=== PATIENT | male | born 2000 | race Caucasian/White ===

== ENCOUNTER → 2021-12-19 | Outpatient (CLI) | payer OTHER | LOC: COL.RAD 08:57 → EDSEX 10:00 | DX: K80.50 Calculus of bile duct without cholangitis or cholecystitis without obstruction (principal) | CPT/HCPCS: A9537; J2805 ==

== ENCOUNTER 2022-01-07 10:44 | Day surgery (SDC) | payer OTHER ==
[~2022-01-07] VITALS: Ht 175.3 cm; Wt 138.7 kg
[2022-01-07 11:43] VITALS: BP 121/68; PULSE 89; TEMP 98.3
[2022-01-07] MEDS ORDERED: ZOFRAN ODT4 MG PO (11:45)
[2022-01-07] MEDS ORDERED: DEPAKOTE ER 50500 MG PO (12:03)
[2022-01-07] MEDS ORDERED: CYMBALTA 30MG30 MG PO (12:03)
[2022-01-07] MEDS ORDERED: PRILOSEC 20MG20 MG PO (12:04)
[2022-01-07] MEDS ORDERED: INDERAL 10MG10 MG PO (12:04)
[2022-01-07] MEDS ORDERED: NORCO 325 MG-51 TAB PO (15:26)
[2022-01-07 16:13] VITALS: BP 148/79; PULSE 91; TEMP 97.4
--- NOTE | 2022-01-07 16:13 | NUR ---
The patient arrived back to [facility] from the recovery room at this time. The patient appears alert and oriented and reports gas pain at this time. The patient has four bandaids to his abdomen that appear clean, dry and intact. The patient has oxygen in place at 2L per nasal cannula and appears to be tolerating it well. Post operative vital signs were started at this time. The patient has some ice water and denies wanting anything further at this time. The patient's significant other, Catalino, was brought back to be at his bedside. Call light is within reach. Will continue to monitor the patient.
[2022-01-07 16:28] VITALS: BP 150/89; PULSE 86; TEMP 98.1
--- NOTE | 2022-01-07 16:28 | NUR ---
The patient was weaned to room air and appears to be tolerating it well. Vital signs appear stable. The patient appears to be tolerating the water well. Significant other remains at his bedside. Will continue to monitor the patient.
[2022-01-07 16:41] VITALS: BP 149/84; PULSE 75
--- NOTE | 2022-01-07 16:41 | NUR ---
The patient agrees to try some apple juice and vanilla pudding at this time. Vital signs remain stable. Will continue to monitor the patient.
[2022-01-07 17:00] VITALS: BP 144/68; PULSE 66
--- NOTE | 2022-01-07 17:00 | NUR ---
The patient was given a PRN dose of [place] 1 tab at this time to continue his pain control prior to him getting up to use the bathroom. The patient ate some pudding and drank some juice and appeared to tolerate both well.
--- NOTE | 2022-01-07 17:25 | NUR ---
The patient ambulated to the bathroom with the stand by assistance of one nurse and appeared to tolerate the activity well. While the patient attempted to void his right lower incision started to have a moderate amount of blood drainage. He notified the nurse and pressure was applied to the area. The nurse encouraged the patient to sit down as he was feeling light headed. He was given a cool wash cloth. Once it was determined that the incision was no longer draining a pressure dressing was applied to the site. The patient ambulated back to bed and wants to rest before getting up again.
--- NOTE | 2022-01-07 17:54 | NUR ---
Discharge instructions were reviewed with the patient and his significant other at this time. They both verbalized understanding and have no questions for the nurse at this time. The patient states he feels "much better" his pain is "minimal" and he feels the urge to void at this time. The patient's significant other is going to assist him to the bathroom and then the patient is going to get dressed for discharge.
--- NOTE | 2022-01-07 18:01 | NUR ---
Dr. Dutta was notified of the patient's drainage from his incision while in the bathroom. He verbalized understanding and has no further orders for the nurse at this time. He is good to proceed with discharge.
--- NOTE | 2022-01-07 18:05 | NUR ---
The patient was escorted out via wheelchair to a private vehicle by IVÁN Finch. The patient's belongings and discharge paperwork were sent with him. The patient's friend is present to pick him and his significant other up and drive them home.
== END 2022-01-07 18:05 | disposition home or self-care (01) ==
LOC: SDCO 10:44
DX: K81.1 Chronic cholecystitis (principal); K82.8 Other specified diseases of gallbladder; E66.01 Morbid (severe) obesity due to excess calories; Z68.42 Body mass index [BMI] 45.0-49.9, adult
CPT/HCPCS: J0330; J0690; J1170; J1885; J2405; J2704; J3010; J7120

== ENCOUNTER 2022-01-23 20:54 | Emergency (ER) | payer OTHER ==
[~2022-01-23 20:54] MED LIST: CYMBALTA 30MG30 MG PO; DEPAKOTE ER 50500 MG PO; INDERAL 10MG10 MG PO; NORCO 325 MG-51 TAB PO; PRILOSEC 20MG20 MG PO; ZOFRAN ODT4 MG PO
[2022-01-23 21:01] VITALS: TEMP 99.1
[2022-01-23 22:33] VITALS: BP 118/80; PULSE 93
== END 2022-01-23 22:33 | disposition home or self-care (01) ==
LOC: COL.ER 20:54
DX: S16.1XXA Strain of muscle, fascia and tendon at neck level, initial encounter (principal); W01.198A Fall on same level from slipping, tripping and stumbling with subsequent striking against other object, initial encounter; Y93.01 Activity, walking, marching and hiking

== ENCOUNTER 2023-01-26 10:09 | Observation (INO) | payer OTHER ==
[~2023-01-26] VITALS: Ht 172.7 cm; Wt 140.0 kg
[2023-01-26] VITALS (11 sets, daily range): BP systolic 110–141; BP diastolic 57–79; PULSE 59–88; TEMP 98.2–99.3
[2023-01-26 11:18] LABS: COLLECTION METHOD CLEAN CATCH
[2023-01-26 11:23] LABS: BASO % 0.3 % (0.0-2.0); EOS # 0.2 K/mm3 (0.0-0.7); EOS % 1.3 % (0.0-4.0); GRAN # 10.7 K/mm3 (1.4-6.5); GRAN % 76.4 % (42.2-75.2); HEMATOCRIT 39.7 % (42.0-52.0); HEMOGLOBIN 13.5 g/dl (13.5-18.0); LYMPH % 14.3 % (20.0-51.0); MEAN CELL VOLUME 78 fl (80.0-100.0); MEAN CORPUSCULAR HEMOGLOBIN 27 pg (27-31); MEAN CORPUSCULAR HGB CONC 34 g/dl (33.0-37.0); MEAN PLATELET VOLUME 10.8 fl (7.4-10.4); MONO % 7.3 % (1.7-9.3); PLATELET COUNT 343 K/mm3 (130-400); RED BLOOD COUNT 5.07 M/mm3 (4.20-5.60); REDCELL DISTRIBUTION WIDTH-CV 14.4 % (11.5-14.5)
[2023-01-26 11:31] LABS: MUCOUS Present (NOT PRESENT); SQUAMOUS EPITHELIAL 0-2 /hpf (0-10); URINE BACTERIA Rare /hpf (NONE SEEN); URINE RBC 0-2 /hpf (0-2)
[2023-01-26 11:32] LABS: PH 5.5 (5.0-8.5); URINE APPEARANCE Clear (CLEAR/HAZY); URINE BLOOD Negative (NEGATIVE); URINE COLOR Yellow (YELLOW); URINE GLUCOSE Negative (NEGATIVE); URINE KETONE Negative (NEGATIVE); URINE NITRATE Negative (NEGATIVE); URINE PROTEIN(semi-quant) Negative (NEGATIVE); URINE UROBILINOGEN 0.2 E.U/dL (0.2-1.0)
[2023-01-26 11:39] LABS: ALBUMIN 3.7 gm/dL (3.5-5.0); BILIRUBIN,TOTAL 0.7 mg/dL (0.2-1.2); C-REACTIVE PROTEIN 2.18 mg/dL (0.00-0.50); CALCIUM 9.6 mg/dL (8.4-10.2); CREATININE, serum 1.02 mg/dL (0.72-1.25); TOTAL PROTEIN 7.3 gm/dL (6.2-8.1)
[2023-01-26] MEDS ORDERED: LAMICTAL 25MG T25 MG PO (13:09)
[2023-01-26] MEDS ORDERED: PROTONIX20 MG PO (13:11)
[2023-01-26] MEDS ORDERED: PRINIVIL40 MG PO (13:11)
[2023-01-26] MEDS ORDERED: MELATONIN3 M1 PO (13:12)
--- NOTE | 2023-01-26 16:15 | NUR ---
PT LEFT WITH SX TEAM.
--- NOTE | 2023-01-26 18:38 | NUR ---
PT ARRIVED TO ROOM VIA STRETCHER BY PACU NURSE. PT IS A LITTLE SLEEP, BUT EASILY AROUSED. PT STATED HE HAS NO PAIN AT THIS TIME, BUT HIS INCISION SITES ARE ITCHY.
[2023-01-27 04:05] VITALS: BP 120/68; PULSE 78; TEMP 98.1
--- NOTE | 2023-01-27 06:05 | NUR ---
PT RESTED COMFORTABLY OVERNIGHT WITH MINIMAL PAIN, BED IN LOWEST POSITION AND CALL LIGHT WITHIN REACH. HIGHEST PAIN WAS RATED AT #4 AND [place] WAS GIVEN ONCE FOR PAIN. PT LAP SITES CLEAN AND DRY. PT HAS BEEN ABLE TO EAT WITHOT NAUSEA AND VOID THIS SHIFT.
--- NOTE | 2023-01-27 07:00 | NUR ---
Pt doing well, reports pain is tolerable at this time. States he is getting around well. Discussed how to order breakfast. No other needs, call light within reach
[2023-01-27] MEDS ORDERED: NORCO 325 MG-51 TAB PO (07:27)
[2023-01-27 08:36] VITALS: BP 131/79; PULSE 93; TEMP 98
--- NOTE | 2023-01-27 09:29 | NUR ---
Pt continues to do well, Dr De La Cruz has been in to see pt, discharge orders were wrote. Reviewed discharge instructions with pt to include prescription and follow up appointment. All questions answered, pt did call his ride
--- NOTE | 2023-01-27 10:25 | NUR ---
Pt ride arrived. INT removed from right AC and pt escorted out
== END 2023-01-27 10:25 | disposition home or self-care (01) ==
LOC: COL.ER 10:09 → MEDICAL 13:22
PROVIDERS: Nurse Practitioner; ADMIT Surgery
DX: K35.80 Unspecified acute appendicitis (principal); G47.33 Obstructive sleep apnea (adult) (pediatric); F31.9 Bipolar disorder, unspecified
CPT/HCPCS: G0378; J0690; J1100; J1170; J2405; J2543; J2550; J2704; J3010; J7030; Q9967